=== PATIENT | female | born 2005 | race Caucasian/White ===

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

== ENCOUNTER 2024-03-08 01:22 | Emergency (ER) | payer OTHER ==
[~2024-03-08] VITALS: Ht 172.7 cm; Wt 93.4 kg
[2024-03-08] MEDS ORDERED: PRENATAL TABLE1 EAC2 PO (01:49)
[2024-03-08 02:15] LABS: Source, Urine Clean Catch
[2024-03-08 02:22] LABS: Bilirubin, Urine Neg (Neg); Blood, Urine Neg (Neg); Glucose Qualitative, Urine Neg (Neg); Ketones, Urine Neg (Neg); Leukocyte Esterase, Urine Neg (Neg); Nitrite, Urine Neg (Neg); Protein, Urine Neg (Neg); Specific Gravity, Urine 1.015 (1.003-1.022); Urobilinogen, Urine NORM (Normal); pH, Urine 6.5 (5.0-8.0)
[2024-03-08 02:27] LABS: Appearance, Urine Clear (Clear); Color, Urine Yellow (P-Yellow)
[2024-03-08 02:35] LABS: BASOPHILS ABSOLUTE AUTO 0.04 K/mm3 (0.00-0.23); BASOPHILS PERCENT AUTO 1 % (0-2); EOSINOPHILS ABSOLUTE AUTO 0.24 K/mm3 (0.00-0.68); EOSINOPHILS PERCENT AUTO 4 % (0-6); Hematocrit 38.2 % (33.0-51.0); Hemoglobin 12.6 g/dL (11.5-16.0); IMMATURE GRAN ABSOLUTE AUTO 0.01 K/mm3 (0.00-0.10); IMMATURE GRAN PERCENT AUTO 0 % (0-1); LYMPHOCYTES ABSOLUTE AUTO 1.63 K/mm3 (0.84-5.20); LYMPHOCYTES PERCENT AUTO 26 % (21-46); MONOCYTES ABSOLUTE AUTO 0.44 K/mm3 (0.16-1.47); MONOCYTES PERCENT AUTO 7 % (4-13); Mean Corpuscular HGB 31.9 pg (26.0-34.0); Mean Corpuscular Volume 97 fL (80-100); Mean Platelet Volume 11.5 fL (9.1-12.4); NEUTROPHILS ABSOLUTE AUTO 4.01 K/mm3 (1.96-9.15); NEUTROPHILS PERCENT AUTO 63 % (41-73); Platelet Count 212 K/mm3 (150-400); RDW Standard Deviation 46.1 fL (35.1-46.3); Red Blood Cell Count 3.95 M/mm3 (3.80-5.20); White Blood Cell Count 6.37 K/mm3 (4.00-11.30)
[2024-03-08 02:43] LABS: Albumin, Blood 3.6 g/dL (3.4-5.0); Albumin/Globulin Ratio 1.1 (0.8-1.8); Bilirubin, Total 0.2 mg/dL (0.1-1.0); Bun/Creatinine Ratio 16.8 (12.0-20.0); Calcium, Blood 8.3 mg/dL (8.5-10.1); Creatinine, Blood 0.77 mg/dL (0.40-1.00); Globulin, Blood 3.4 g/dL (2.2-4.0); Potassium, Blood 3.6 mmol/L (3.5-5.5)
[2024-03-08] MEDS ORDERED: Acetaminophen 325 MG TABLET PO ONE (04:50)
[2024-03-08 04:57] VITALS: BP 113/67
== END 2024-03-08 05:05 | disposition home or self-care (01) ==
LOC: ER 01:22
PROVIDERS: Student in an Organized Health Care Education/Training Program
DX: O99.891 Other specified diseases and conditions complicating pregnancy (principal); R10.32 Left lower quadrant pain; Z3A.01 Less than 8 weeks gestation of pregnancy; Z87.891 Personal history of nicotine dependence; Z79.899 Other long term (current) drug therapy
CPT/HCPCS: 76801; 76817; 80053; 81003; 81025; 84702; 85025

== ENCOUNTER 2024-04-24 12:35 | Day surgery (SDC) | payer OTHER ==
[~2024-04-24] VITALS: Ht 172.7 cm; Wt 92.7 kg
[~2024-04-24 12:35] MED LIST changes: +Lactated Ringer's 1,000 ML IV ONE; +PRENATAL TABLE1 EAC2 PO
[2024-04-24] MEDS ORDERED: Lactated Ringer's 1,000 ML IV ONE (13:25)
[2024-04-24] MEDS ORDERED: CeFAZolin Sodium 2,000 MG VIAL ONE (13:35)
[2024-04-24] MEDS ORDERED: NS 50 ML IV ONE (13:36)
[2024-04-24] MEDS ORDERED: UNASYN (13:39)
[2024-04-24] MEDS ORDERED: ESCI10 (13:40)
[2024-04-24] MEDS ORDERED: ONDA4ODT (13:41)
[2024-04-24] MEDS ORDERED: FentaNYL Citrate 50 MCG/ML 2 ML Injection ONE (14:08)
[2024-04-24] MEDS ORDERED: propofoL 20 ML IV ONE (14:08)
[2024-04-24] MEDS ORDERED: Dexamethasone Sod Phos 10 MG/ML 1ML VIAL ONE (14:20)
[2024-04-24] MEDS ORDERED: Ondansetron HCl 2 MG / ML 2ML Vial ONE (14:31)
[2024-04-24] MEDS ORDERED: Silver Nitr/Potassium Nitrate 1 EA APPL ONE (14:40)
[2024-04-24] MEDS ORDERED: Silver Nitr/Potassium Nitrate 1 EA APPL XX ONE (14:44)
[2024-04-24 15:24] VITALS: BP 107/66
[2024-04-24] MEDS ORDERED: Ibuprofen 400 MG Tab ONE (15:47)
[2024-04-24] MEDS ORDERED: OxyCODONE 5 mg/Acetamin 325 mg TABLET ONE (15:47)
== END 2024-04-24 16:06 | disposition home or self-care (01) ==
LOC: ORSCSDS 12:35
PROVIDERS: Obstetrics & Gynecology
PROC: 10D17ZZ Extraction of Products of Conception, Retained, Via Natural or Artificial Opening (ICD-10-PCS; principal; 2024-04-24 13:45)
DX: O03.4 Incomplete spontaneous abortion without complication (principal); F31.9 Bipolar disorder, unspecified; E66.9 Obesity, unspecified; Z68.31 Body mass index [BMI] 31.0-31.9, adult; Z79.899 Other long term (current) drug therapy
CPT/HCPCS: 88305; A9270; J0690; J1100; J2405; J2704; J3010; J7120

== ENCOUNTER 2024-06-01 19:27 | Emergency (ER) | payer OTHER ==
[~2024-06-01] VITALS: Ht 162.6 cm; Wt 90.7 kg
[~2024-06-01 19:27] MED LIST changes: +ESCI10; -Lactated Ringer's 1,000 ML IV ONE; +ONDA4ODT; +UNASYN
[2024-06-01 19:37] VITALS: BP 112/81
== END 2024-06-01 19:39 | disposition home or self-care (01) ==
LOC: ER 19:27
DX: Z02.79 Encounter for issue of other medical certificate (principal); K64.9 Unspecified hemorrhoids; F41.9 Anxiety disorder, unspecified; F32.A Depression, unspecified; Z79.899 Other long term (current) drug therapy; Z87.891 Personal history of nicotine dependence
CPT/HCPCS: 99281

== ENCOUNTER → 2024-07-06 | Outpatient (CLI) | payer OTHER | LOC: LAB 16:06 → LAB SHORT 16:06 | DX: N39.0 Urinary tract infection, site not specified (principal) | CPT/HCPCS: 87077; 87086; 87186 ==

== ENCOUNTER → 2025-01-31 | Outpatient (CLI) | payer OTHER | END | disposition home or self-care (01) | LOC: LAB SHORT 18:16 → LAB 18:16 | DX: O09.93 Supervision of high risk pregnancy, unspecified, third trimester (principal) | CPT/HCPCS: 87081; 87150 ==

== ENCOUNTER 2025-02-24 05:24 | Inpatient (IN) | payer OTHER ==
[~2025-02-24] VITALS: Ht 172.7 cm; Wt 105.9 kg
[2025-02-24] VITALS (44 sets, daily range): BP systolic 93–159; BP diastolic 52–99
[2025-02-24] MEDS ORDERED: FentaNYL Citrate 50 MCG/ML 2 ML Injection IV PRN (06:35)
[2025-02-24] MEDS ORDERED: Oxytocin 10 Unit / ML Vial IM PRN (06:35)
[2025-02-24] MEDS ORDERED: Carboprost Tromethamine 250 MCG/ML 1ML Amp IM PRN ×2 (06:35→21:30)
[2025-02-24] MEDS ORDERED: Ondansetron HCl 2 MG / ML 2ML Vial IV PRN (06:35)
[2025-02-24] MEDS ORDERED: Tranexamic Acid 100 ML IV PRN (06:35)
[2025-02-24] MEDS ORDERED: OXYTOCIN/RINGER'S LACTATE 500 ML IV PRN (06:35)
[2025-02-24] MEDS ORDERED: FentaNYL 2mcg/ml-Bup 0.1% Epd 250 ML EPI PRN (06:35)
[2025-02-24] MEDS ORDERED: ePHEDrine Sulfate 50 MG/ML 1ML Injection XX PRN (06:35)
[2025-02-24] MEDS ORDERED: Penicillin G Potassium 5,000,000 UNITS in NS 250 ML IV ONE (06:35)
[2025-02-24] MEDS ORDERED: Methylergonovine Maleate 0.2MG / ML 1ML Amp IM PRN ×2 (06:35→21:30)
[2025-02-24 07:31] LABS: BASOPHILS ABSOLUTE AUTO 0.05 K/mm3 (0.00-0.23); BASOPHILS PERCENT AUTO 1 % (0-2); EOSINOPHILS ABSOLUTE AUTO 0.29 K/mm3 (0.00-0.68); EOSINOPHILS PERCENT AUTO 3 % (0-6); Hematocrit 31.5 % (33.0-51.0); Hemoglobin 9.9 g/dL (11.5-16.0); IMMATURE GRAN ABSOLUTE AUTO 0.08 K/mm3 (0.00-0.10); IMMATURE GRAN PERCENT AUTO 1 % (0-1); LYMPHOCYTES ABSOLUTE AUTO 1.91 K/mm3 (0.84-5.20); LYMPHOCYTES PERCENT AUTO 21 % (21-46); MONOCYTES ABSOLUTE AUTO 0.49 K/mm3 (0.16-1.47); MONOCYTES PERCENT AUTO 5 % (4-13); Mean Corpuscular HGB Conc 31.4 g/dL (31.5-36.5); Mean Corpuscular Volume 83 fL (80-100); NEUTROPHILS ABSOLUTE AUTO 6.18 K/mm3 (1.96-9.15); NEUTROPHILS PERCENT AUTO 69 % (41-73); NRBC ABSOLUTE 0.00 K/mm3 (0.00-0.02); NRBC Auto 0.0 /100 WBC (0.0-0.2); Platelet Count 245 K/mm3 (150-400); RDW Coefficient Variation 15.5 % (11.7-14.2); RDW Standard Deviation 47.0 fL (35.1-46.3)
[2025-02-24] MEDS ORDERED: Penicillin G Potassium 2,500,000 UNITS in Dextrose 5% 100 ML IV SCH (11:00)
[2025-02-24] MEDS ORDERED: Witch Hazel/Glycerin PADS TOP PRN (21:30)
[2025-02-24] MEDS ORDERED: Benzocaine Topical Anesthetic Spray 60GM TOP PRN (21:30)
[2025-02-24] MEDS ORDERED: OXYTOCIN/RINGER'S LACTATE 500 ML IV SCH (21:35)
[2025-02-24] MEDS ORDERED: Oxytocin 10 Unit / ML Vial IM ONE (21:35)
[2025-02-24] MEDS ORDERED: Ketorolac Tromethamine 30mg Vial IV PRN (23:30)
[2025-02-25 03:42] VITALS: BP 109/63
[2025-02-25 07:13] VITALS: BP 112/55
[2025-02-25] MEDS ORDERED: Prenatal Vit/FE Fumarate/FA 1 Tab PO SCH (09:00)
[2025-02-25 11:50] VITALS: BP 116/56
[2025-02-25 15:59] VITALS: BP 121/75
[2025-02-25 19:43] VITALS: BP 117/70
[2025-02-25 23:23] VITALS: BP 119/69
== END 2025-02-25 23:47 | disposition home or self-care (01) | DRG 807 ==
LOC: OBS 05:24 → BC 05:28 → OBS 06:30 → BC 06:35
PROVIDERS: ADMIT Family Medicine
PROC: 10E0XZZ Delivery of Products of Conception, External Approach (ICD-10-PCS; principal; 2025-02-24)
PROC: 4A1HXCZ Monitoring of Products of Conception, Cardiac Rate, External Approach (ICD-10-PCS; 2025-02-24)
DX: O42.02 Full-term premature rupture of membranes, onset of labor within 24 hours of rupture (principal); Z37.0 Single live birth; Z3A.39 39 weeks gestation of pregnancy; O99.824 Streptococcus B carrier state complicating childbirth; O99.334 Smoking (tobacco) complicating childbirth; F17.290 Nicotine dependence, other tobacco product, uncomplicated; O99.214 Obesity complicating childbirth; O99.344 Other mental disorders complicating childbirth; F41.9 Anxiety disorder, unspecified; F31.9 Bipolar disorder, unspecified
CPT/HCPCS: 36415; 51702; 59025; 85025; 86850; 86900; 86901; 99214; A9270; J1885; J2540; J2590; J7050; J7120